=== PATIENT | male | born 1965 | race American Indian/Alaskan Native ===

== ENCOUNTER 2017-02-24 22:42 | Observation (INO) | payer MEDICAID ==
[2017-02-24 22:42] VITALS: BMI 25.8
[2017-02-24 22:51] VITALS: RESP 16; O2SAT 98
--- NOTE | 2017-02-24 22:57 | C.PDOC ---
History Of Present Illness Patient presents to the ER after being found unresponsive on the street. Patient was given 2ml of narcan in the field; he became increasingly agitated and combative after narcan but eventually calmed down. Patient admits to heroin use today; denies nausea, vomiting, and abdominal pain. Time Seen by Provider: 02/24/17 22:57 Chief Complaint (Nursing): Substance Abuse History Per: Patient, EMS History/Exam Limitations: no limitations Onset/Duration Of Symptoms: Hrs Current Symptoms Are (Timing): Still Present Suicide/Self Injury Attempted (Context): None Modifying Factor(s): Narcotics Severity: None Pain Scale Rating Of: 0 Associated Symptoms: denies: Depression, Suicidal Thoughts, Suicidal Plan Involuntary Hold By: None Recent travel outside of the [place]: No Past Medical History Reviewed: Historical Data, Nursing Documentation, Vital Signs Vital Signs: Last Vital Signs Temp 97.5 F L 02/24/17 22:47 Pulse 78 02/24/17 22:47 Resp 16 02/24/17 22:47 BP 147/95 H 02/24/17 22:47 Pulse Ox 98 02/25/17 03:28 - Medical History PMH: No Chronic Diseases Surgical History: Cholecystectomy (2012) - [facility] Procedures AMPUTATION STUMP CHEKO (07/09/13) DILATION OF COMMON BILE DUCT WITH INTRALUMINAL DEVICE, ENDO (04/29/15) DILATION OF COMMON BILE DUCT, ENDO (04/29/15) EXTIRPATION OF MATTER FROM COMMON BILE DUCT, ENDO (04/29/15) MEDS MGMT FOR SUBSTANCE ABUSE TREATMENT, METHADONE MAINT (04/29/15) NONEXCIS DEBRID OF WOUND, INFECT, OR BURN (07/09/13) TOE AMPUTATION (07/09/13) Family History: States: No Known Family Hx - Social History Hx Tobacco Use: Yes Hx Alcohol Use: Yes Hx Substance Use: Yes (Snorts heroin.) - Immunization History Hx Tetanus Toxoid Vaccination: No Hx Influenza Vaccination: No Hx Pneumococcal Vaccination: No Review Of Systems Constitutional: Negative for: Fever, Chills Gastrointestinal: Negative for: Nausea, Vomiting, Diarrhea Physical Exam - Physical Exam Appears: Non-toxic Skin: Warm, Dry Head: Normacephalic Oral Mucosa: Moist Chest: Symmetrical Cardiovascular: Rhythm Regular Respiratory: No Rales, No Rhonchi, No Wheezing Gastrointestinal/Abdominal: Soft, No Tenderness Neurological/Psych: Oriented x3 ED Course And Treatment - Laboratory Results Result Diagrams: 02/24/17 23:14 02/24/17 23:14 O2 Sat by Pulse Oximetry: 98 (Room air) Pulse Ox Interpretation: Normal Progress Note: Urinalysis ordered. Vitals stable. Reevaluation Time: 05:16 Reassessment Condition: Improved ED OBSERVATION Discharge: Yes Date of observation admission: 02/24/17 Time of observation admission: 23:00 - Observation admission statement Patient is being placed in observation because:: heroin od - Goals of Observation Goals of observation are:: sobriety - Progress Note Progress Note: 02/24/17 23:00 vitals stable 02/25/17 03:27 arousable, no complaints 02/25/17 05:17 vitals stable Disposition Counseled Patient/Family Regarding: Studies Performed, Diagnosis, Need For Followup - Disposition Disposition: HOME/ ROUTINE Disposition Time: 22:57 Condition: FAIR - Clinical Impression Clinical Impression: Drug abuse - Scribe Statement The provider has reviewed the documentation as recorded by the Miguel Angelibhansa Luke All medical record entries made by the Miguel Angelibhansa were at my direction and personally dictated by me. I have reviewed the chart and agree that the record accurately reflects my personal performance of the history, physical exam, medical decision making, and the department course for this patient. I have also personally directed, reviewed, and agree with the discharge instructions and disposition.
[2017-02-24 23:19] LABS: BASO % 0.6 % (0.0-2.0); EOS # 0.1 K/uL (0.0-0.7); EOS % 2.3 % (0.0-4.0); HEMATOCRIT 34.7 % (35.0-51.0); LYMPH # 0.9 K/uL (1.0-4.3); LYMPH % 14.9 % (20.0-40.0); MEAN CELL VOLUME 87.3 fL (80.0-94.0); MEAN CORPUSCULAR HEMOGLOBIN 29.1 pg (27.0-31.0); MEAN CORPUSCULAR HGB CONC 33.3 g/dL (33.0-37.0); MEAN PLATELET VOLUME 9.7 fL (7.2-11.7); MONO # 0.4 K/uL (0.0-0.8); MONO % 6.1 % (0.0-10.0); RED CELL DISTRIBUTION WIDTH 14.1 % (11.5-14.5); WHITE BLOOD COUNT 6.1 K/uL (4.8-10.8)
[2017-02-24 23:30] LABS: ALB/GLOB RATIO 1.1 (1.0-2.1); ALCOHOL SERUM < 10 mg/dl (0-10); ALKALINE PHOSPHATASE 213 U/L (38-126); ALT/SGPT 71 U/L (21-72); AST/SGOT 75 U/L (17-59); BILIRUBIN,TOTAL 0.4 mg/dL (0.2-1.3); BLOOD UREA NITROGEN 20 mg/dL (9-20); CALCIUM 8.4 mg/dl (8.6-10.4); CARBON DIOXIDE 26 mmol/L (22-30); CHLORIDE 101 mmol/L (98-107); GFR AFRICAN-AMERICAN > 60; GLUCOSE,RANDOM 139 mg/dL (75-110); POTASSIUM 3.3 mmol/L (3.6-5.2); SODIUM 139 mmol/L (132-148); TOTAL PROTEIN 7.1 g/dL (6.3-8.3)
[2017-02-25 05:57] VITALS: BP 136/79; PULSE 79; TEMP 97.8
== END 2017-02-25 05:17 | disposition home or self-care (01) ==
LOC: C.ER 22:42 → C.9OBSV 22:59
PROVIDERS: ADMIT Emergency Medicine; ATTEND Emergency Medicine
DX: F11.10 Opioid abuse, uncomplicated (principal)
CPT/HCPCS: 80053; 80320; 82948; 85025; 99284; G0378